=== PATIENT | male | born 1935 | race Caucasian/White ===

== ENCOUNTER 2017-11-06 10:50 | Emergency (ER) | payer OTHER, MEDICARE ==
[~2017-11-06] VITALS: Ht 172.7 cm; Wt 97.5 kg
--- NOTE | 2017-11-06 12:32 | ED AMS/SEIZURE/WEAK/DIZZY ---
History of Present Illness General Chief Complaint: Ear Complaints Stated Complaint: EAR ISSUES Source: patient, family, old records Exam Limitations: no limitations Vital Signs & Intake/Output Vital Signs & Intake/Output Vital Signs Date Time Temp Pulse Resp B/P B/P Pulse O2 O2 Flow FiO2 Mean Ox Delivery Rate 11/06 1511 58 18 192/90 99 Room Air 11/06 1058 96.7 50 20 205/84 96 Room Air Allergies Coded Allergies: metformin ("ALMOST " 11/06/17) morphine (UNKNOWN 11/06/17) Triage Note: PT TO ED C/O DIZZINESS X A FEW MONTHS. PT HAS H/O PSORIASIS IN HIS EARS, HAS EAR DROPS. STATES WHEN HE STANDS UP HE GETS DIZZY AND FALLS DOWN. Triage Nurses Notes Reviewed? yes Onset: 6 weeks ago Duration: week(s):, continues in ED, waxing and waning Timing: recent history Injury Environment: home Severity: moderate, severe Modifying Factors: Improves With: immobilization, rest. Worsens With: movement. HPI: 6 weeks prior to admission patient complains of increasing episodes of dizziness off-balance. Several days prior to admission he reports decreasing hearing on the left. His bowels reports he has been putting cream in his ears due to psoriasis and itch. He denies fever chills nausea vomiting diarrhea abdominal pain chest pain shortness breath headache dysuria rash bleeding. Past History Travel History Traveled to [place] past 21 day No Medical History Any Pertinent Medical History? see below for history Cardiovascular: myocardial infarction Endocrine: diabetes Surgical History Surgical History: non-contributory Psychosocial History What is your primary language Syriac Tobacco Use: Never used ETOH Use: denies use Illicit Drug Use: denies illicit drug use Family History Hx Contributory? No Review of Systems Review of Systems Constitutional: Reports: no symptoms. EENTM: Reports: see HPI, hearing changes. Respiratory: Reports: no symptoms. Cardiovascular: Reports: no symptoms. GI: Reports: no symptoms. Genitourinary: Reports: no symptoms. Musculoskeletal: Reports: no symptoms. Skin: Reports: no symptoms. Neurological/Psychological: Reports: see HPI. Hematologic/Endocrine: Reports: no symptoms. Immunologic/Allergic: Reports: no symptoms. All Other Systems: Reviewed and Negative Physical Exam Physical Exam General Appearance: well developed/nourished, alert, awake, anxious, mild distress, obese Head: atraumatic, normal appearance Eyes: Bilateral: normal appearance, PERRL, EOMI. Ears, Nose, Throat: normal pharynx, hearing grossly normal, right TM normal with some wax external auditory canal, unable to visualize left TM secondary to cerumen Neck: normal inspection, full range of motion, no midline tenderness Respiratory: normal breath sounds, chest non-tender, no respiratory distress, quiet respiration Cardiovascular: regular rate/rhythm, normal peripheral pulses, norml femoral pulses equa Peripheral Pulses: 4+ carotid (R), 4+ carotid (L) Gastrointestinal: normal bowel sounds, soft, non-tender, no organomegaly Back: normal inspection, normal range of motion Extremities: normal range of motion, no ligament instability Neurologic/Psych: no motor/sensory deficits, awake, alert, oriented x 3, normal mood/affect, 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 Skin: intact, normal color, warm/dry Lymphatic: no anterior cervical gianna Core Measures ACS in differential dx? No CVA/TIA Diagnosis No Sepsis Present: No Sepsis Focused Exam Completed? No Progress Differential Diagnosis: benign positional vertigo, CVA/stroke, dehydration, electrolyte imbalance, hypoxia, intracranial Hem., intracranial mass/tumor Plan of Care: Orders Procedure Date/time Status TROPONIN LEVEL 11/06 1210 Complete COMPREHENSIVE METABOLIC PANEL 11/06 1210 Complete CBC WITHOUT DIFFERENTIAL 11/06 1210 Complete EKG 11/06 1210 Active Laboratory Tests 11/06/17 1500: RBC 5.04, MCV 86.6, MCH 29.0, MCHC 33.5, RDW 13.9, MPV 7.5, Gran % 65.1, Lymphocytes % 17.5 L, Monocytes % 14.0 H, Eosinophils % 3.2, Basophils % 0.2, Absolute Granulocytes 5.1, Absolute Lymphocytes 1.4, Absolute Monocytes 1.1 H, Absolute Eosinophils 0.3, Absolute Basophils 0 11/06/17 1351: Anion Gap 13, Estimated GFR > 60, BUN/Creatinine Ratio 26.0 H, Glucose 180 H, Calcium 9.8, Total Bilirubin 0.8, AST 22, ALT 27, Alkaline Phosphatase 52, Troponin I 0.02, Total Protein 7.1, Albumin 4.2, Globulin 2.9, Albumin/Globulin Ratio 1.4 Diagnostic Imaging: Viewed by Me: CT Scan. Discussed w/RAD: CT Scan. Radiology Impression: No acute intracranial pathology. Initial ED EKG: normal axis, normal intervals, normal p-waves, normal QRS complex, normal sinus rhythm, no ST T wave changes Prior EKG: unchanged Rhythm Strip: normal sinus rhythm Comments: Could not handle cerumen irrigation. Feels better no further dizziness. Departure Departure Time of Disposition: 1533 Disposition: HOME OR SELF CARE Condition: Stable Clinical Impression Primary Impression: Vertigo Secondary Impressions: Impacted cerumen of left ear Referrals: Theresa SANTANA,Kandace Romero Call for ENT follow up Departure Forms: Customer Survey General Discharge Information Prescriptions: Current Visit Scripts Meclizine HCl 1 TAB PO TIDPRN PRN dizziness #30 TAB Scopolamine 1 PATCH TOP Q72 PRN dizziness #4 PATCH Mineral Oil (Muri-Lube Mineral Oil) 2 GTT OTIC BID PRN excess cerumen #2 VIAL Ref 5
--- NOTE | 2017-11-06 13:24 | CT SCAN REPORT ---
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 COMPARISON: None available TECHNIQUE: Contiguous axial imaging was performed from the skull base to vertex without intravenous administration of contrast. DLP: 715 mGy-cm FINDINGS: Loaf Counter: The patient has mild hyperostosis interna frontalis. There is no evidence of acute intracranial hemorrhage or territorial infarction. No abnormal mass effect or midline shift is seen. Soliz to white matter differentiation is well preserved. No extra-axial fluid collections are identified. The ventricles are normal in size for age and concordant with the prominent cortical sulci. There is no abnormal attenuation within the brain parenchyma. The osseous structures and soft tissues are normal. The mastoid air cells and visualized portions of the paranasal sinuses are well aerated. IMPRESSION: No acute intracranial pathology.
[2017-11-06 15:11] VITALS: BP 192/90
[2017-11-06 15:17] LABS: ABSOLUTE BASOPHIL COUNT 0 /CUMM (0.0-0.2); ABSOLUTE EOSINOPHIL COUNT 0.3 /CUMM (0.0-0.7); ABSOLUTE GRANULOCYTE CT 5.1 /CUMM (1.4-6.5); ABSOLUTE LYMPH COUNT 1.4 /CUMM (1.2-3.4); ABSOLUTE MONOCYTE COUNT 1.1 /CUMM (0.10-0.60); BASOPHIL % 0.2 % (0.0-2.0); EOSINOPHIL % 3.2 % (0-5); GRANULOCYTE % 65.1 % (42.2-75.2); HEMATOCRIT 43.6 % (42-52); MEAN CORPUSCULAR HGB CONC 33.5 G/DL (33.0-37.0); MEAN CORPUSCULAR VOLUME 86.6 FL (80.0-94.0); MEAN PLATELET VOLUME 7.5 FL (7.4-10.4); PLATELET COUNT 185 /CUMM (130-400); RBC DISTRIBUTION WIDTH 13.9 % (11.5-14.5); RED BLOOD CELL CT 5.04 /CUMM (4.70-6.10); WHITE BLOOD CELL COUNT 7.9 /CUMM (4.8-10.8)
[2017-11-06] MEDS ORDERED: MURI-LUBE MINERA2 ML OTIC (15:40)
[2017-11-06] MEDS ORDERED: SCOPOLAMINE1 EAC1 TOP (15:40)
[2017-11-06] MEDS ORDERED: MECLIZINE HCL25 MG PO (15:40)
== END 2017-11-06 16:00 ==
LOC: ERH 10:50
PROVIDERS: Emergency Medicine
DX: R42 Dizziness and giddiness (principal); H61.22 Impacted cerumen, left ear
CPT/HCPCS: 93005; 93010